=== PATIENT | male | born 1940 | race Caucasian/White ===

== ENCOUNTER 2017-03-05 19:24 | Emergency (ER) | payer MEDICARE, MEDICAID ==
[2017-03-05 19:50] LABS: BASO % 0.3 % (0-2); EOSINOPHIL ABSOLUTE COUNT 0.2 tho/cmm (0.0-0.7); HCT-HEMATOCRIT 40.7 % (36.0-53.5); HGB-HEMOGLOBIN 13.9 gm/dl (13.5-17.0); IMMATURE GRANULOCYTES ABSOLUTE 0.02 tho/cmm (0-0.03); IMMATURE GRANULOCYTES PERCENT 0.3 % (0-0.3); LYMPH % 33.1 % (20-45); LYMPH ABSOLUTE COUNT 2.5 tho/cmm (0.8-4.5); MCH (MEAN CORPUSCULAR HGB) 27.3 pg (28.0-32.0); MCHC MEAN CORPUSCULAR HGB CONC 34.2 % (32.0-36.0); MEAN PLATELET VOLUME 9.4 cmc (9.4-12.4); MONO % 18.3 % (0-12); MONOCYTE ABSOLUTE COUNT 1.4 tho/cmm (0.0-1.2); NEUTROPHIL ABSOLUTE COUNT 3.5 tho/cmm (1.6-8.0); NEUTROPHIL-AUTOMATED 3.5 tho/cmm (1.6-8.0); PLATELET COUNT 193 tho/cmm (150-450); RED BLOOD COUNT 5.09 mil/cmm (4.40-5.70); RED CELL DISTRIBUTION WIDTH 13.6 % (12.4-16.4); WHITE BLOOD COUNT 7.6 tho/cmm (4.0-10.0)
[2017-03-05] MEDS ORDERED: ATENOLOL (20:00)
[2017-03-05] MEDS ORDERED: GLUCOPHAGE500 M3 PO (20:00)
[2017-03-05 20:49] LABS: ANION GAP 11 mmol/L (0-20); BLOOD UREA NITROGEN 17 mg/dl (6-24); CALCIUM 8.5 mg/dl (8.5-10.5); CARBON DIOXIDE-VENOUS 29 mmol/L (22-32); CHLORIDE 103 mmol/l (96-110); CREATININE 1.13 mg/dl (0.60-1.30); GLUCOSE 152 mg/dL (70-110); MAGNESIUM 1.9 mg/dl (1.3-2.6); SODIUM 139 mmol/L (135-145); eGFR VALUE FOR BLACK 72 mL/Min
[2017-03-05] MEDS ORDERED: GLUCOPHAGE1000 M1 PO (21:12)
[2017-03-05] MEDS ORDERED: TENORMIN100 M1 PO (21:12)
[2017-03-05] MEDS ORDERED: AMARYL2 M1 PO (21:12)
[2017-03-05] MEDS ORDERED: LEVAQUIN750 M1 PO (21:38)
[2017-03-05] MEDS ORDERED: PROAIR HFA8.5 GM INFIL (21:38)
== END 2017-03-05 21:48 ==
LOC: EDMED 19:24
PROVIDERS: Emergency Medicine
DX: J18.9 Pneumonia, unspecified organism (principal); E11.9 Type 2 diabetes mellitus without complications; I10 Essential (primary) hypertension